=== PATIENT | male | born 1950 | race American Indian/Alaskan Native ===

== ENCOUNTER 2016-05-09 17:46 | Emergency (ER) | payer BC ==
[2016-05-09 18:48] LABS: Bilirubin,Urine NEG (Negative); Blood,Urine SM (Negative); Ketones,Urine NEG (Negative); Leukocyte Esterase,Urine NEG (Negative); Mucus,Urine FEW /HPF; Nitrite,Urine NEG (Negative); Protein,Urine <15 mg/dL mg/dL (Negative); Urobilinogen,Urine < 2.0 mg/dL (<2.0); WBC,Urine < 1.0 /HPF (0.0-6.0)
[2016-05-09 19:28] LABS: Hematocrit 45.1 % (35.5-45.6); Hemoglobin 14.8 gm/dl (11.8-15.2); Mean Corpuscular HGB Conc 33 % (32-34); Mean Corpuscular Hemoglobin 30 pg (28-32); Mean Corpuscular Volume 93 fl (84-94); Platelet Count 162 K/mm3 (140-440); Red Blood Count 4.87 M/mm3 (3.65-5.03); Red Cell Distribution Width 14.2 % (13.2-15.2); White Blood Count 11.1 K/mm3 (4.5-11.0)
[2016-05-09 19:36] LABS: Albumin 3.7 g/dL (3.9-5); Albumin/Globulin Ratio 0.9 %; Bilirubin,Total 0.4 mg/dL (0.1-1.2); Calcium 9.5 mg/dL (8.4-10.2); Chloride 98.8 mmol/L (98-107); Potassium 4.4 mmol/L (3.6-5.0)
[2016-05-09 21:55] LABS: Anisocytosis 1+; Basophils % (Manual) 0 % (0.0-1.8); Blastocytes % (Manual) 0 %; Diff Status Complete; Eosinophils % (Manual) 0 % (0.0-4.3); Platelet Estimate Consistent w Auto
[2016-05-10] MEDS ORDERED: ZOFRAN IV ONE (00:08)
[2016-05-10] MEDS ORDERED: SUBLIMAZE IV ONE (00:08)
--- NOTE | 2016-05-10 00:26 | Emergency Department Report ---
HPI - General Chief Complaint: Abdominal Pain Time Seen by Provider: 05/10/16 00:00 - HPI HPI: Room 4 The patient is a 66-year-old male presenting with a chief complaint of abdominal pain. The patient states since yesterday afternoon has had a constant pain in his left abdomen that has been waxing and waning. Patient denies nausea vomiting or diarrhea. The patient states last bowel movement occurred 2 days ago he normally has multiple bowel movements a day. Patient denies any history of fever. The patient currently gives his pain a score of 6/ 10. Patient denies cough or shortness of breath Location: Left abdomen Duration: Constant since yesterday afternoon Quality: Pain Severity: 6/10 Modifying factors: [see above] Context: [see above] Mode of transportation: There is a visitor present who states she can drive the patient home if he is administered narcotic pain medication. 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) Hx of Cancer: Yes (Prostate) - Surgical History Past Surgical History?: Yes Additional Surgical History: Prostate Removed - Family History Family history: no significant - Social History Smoking Status: Never Smoker Substance Use Type: Non Opiate Pain - Medications Home Medications: Home Medications Medication Instructions Recorded Confirmed Last Taken Type Amoxicillin [Amoxicillin TAB] 875 mg PO BID #20 tablet 05/10/16 Unknown Rx Docusate Sodium [Colace] 100 mg PO BID PRN #30 capsule 05/10/16 Unknown Rx HYDROcodone/APAP 5-325 [[place] 1 - 2 each PO Q6HR PRN #14 tablet 05/10/16 Unknown Rx 5/325] ED Review of Systems ROS: Stated complaint: LT SIDE PAIN WITH DEEP BREATHS Other details as noted in HPI Comment: All other systems reviewed and negative Constitutional: denies: chills, fever Eyes: denies: eye pain, eye discharge, vision change ENT: denies: ear pain, throat pain Respiratory: denies: cough, shortness of breath, wheezing Cardiovascular: denies: chest pain, palpitations Endocrine: no symptoms reported Gastrointestinal: abdominal pain. denies: nausea, vomiting Genitourinary: denies: urgency, dysuria Musculoskeletal: denies: back pain, joint swelling, arthralgia Skin: denies: rash, lesions Neurological: denies: headache, weakness, paresthesias Psychiatric: denies: anxiety, depression Hematological/Lymphatic: denies: easy bleeding, easy bruising Physical Exam - Physical Exam Vital Signs: Vital Signs 05/09/16 05/09/16 17:56 23:14 Temperature 98.2 F 98.0 F Pulse Rate 78 74 Respiratory 18 18 Rate Blood Pressure 153/89 Blood Pressure 128/47 [Left] O2 Sat by Pulse 96 100 Oximetry Physical Exam: GENERAL: The patient is well-developed well-nourished male lying on stretcher. To be in mild discomfort. [] HEENT: Normocephalic. Atraumatic. Extraocular motions are intact. Patient has moist mucous membranes. NECK: Supple. Trachea midline CHEST/LUNGS: Clear to auscultation. There is no respiratory distress noted. HEART/CARDIOVASCULAR: Regular. There is no tachycardia. There is no gallop rub or murmur. ABDOMEN: Abdomen is soft, with discomfort to palpation of left upper quadrant left lower quadrant. There is no rebound or guarding. Patient has normal bowel sounds. There is no abdominal distention. SKIN: There is no rash. There is no edema. There is no diaphoresis. NEURO: The patient is awake, alert, and oriented. The patient is cooperative. The patient has normal speech and gait. MUSCULOSKELETAL: There is no CVA tenderness. There is no evidence of acute injury. ED Course Vital Signs 05/09/16 05/09/16 17:56 23:14 Temperature 98.2 F 98.0 F Pulse Rate 78 74 Respiratory 18 18 Rate Blood Pressure 153/89 Blood Pressure 128/47 [Left] O2 Sat by Pulse 96 100 Oximetry ED Medical Decision Making - Lab Data Result diagrams: 05/09/16 18:52 05/09/16 18:52 Laboratory Tests 05/09/16 05/09/16 05/09/16 18:21 18:52 18:52 WBC 11.1 H RBC 4.87 Hgb 14.8 Hct 45.1 MCV 93 MCH 30 MCHC 33 RDW 14.2 Plt Count 162 Baso % (Auto) Pr Manager Add Manual Diff Complete Total Counted 100 Seg Neuts % (Manual) 60.0 Band Neutrophils % 0 Lymphocytes % (Manual) 28.0 Reactive Lymphs % (Man) 0 Monocytes % (Manual) 12.0 H Eosinophils % (Manual) 0 Basophils % (Manual) 0 Metamyelocytes % 0 Myelocytes % 0 Promyelocytes % 0 Blast Cells % 0 Nucleated RBC % Not Reportable Seg Neutrophils # Man 6.7 Band Neutrophils # 0.0 Lymphocytes # (Manual) 3.1 Abs React Lymphs (Man) 0.0 Monocytes # (Manual) 1.3 H Eosinophils # (Manual) 0.0 Basophils # (Manual) 0.0 Metamyelocytes # 0.0 Myelocytes # 0.0 Promyelocytes # 0.0 Blast Cells # 0.0 WBC Morphology Not Reportable Hypersegmented Neuts Not Reportable Hyposegmented Neuts Not Reportable Hypogranular Neuts Not Reportable Smudge Cells Not Reportable Toxic Granulation Not Reportable Toxic Vacuolation Not Reportable Dohle Bodies Not Reportable Pelger-Huet Anomaly Not Reportable Syd Rods Not Reportable Platelet Estimate Consistent w auto Clumped Platelets Not Reportable Plt Clumps, EDTA Not Reportable Large Platelets Not Reportable Giant Platelets Not Reportable Platelet Satelliting Not Reportable Plt Morphology Comment Not Reportable RBC Morphology Not Reportable Dimorphic RBCs Not Reportable Polychromasia Not Reportable Hypochromasia Not Reportable Poikilocytosis Not Reportable Anisocytosis 1+ Microcytosis Not Reportable Macrocytosis Not Reportable Spherocytes Not Reportable Pappenheimer Bodies Not Reportable Sickle Cells Not Reportable Target Cells Not Reportable Tear Drop Cells Not Reportable Ovalocytes Not Reportable Helmet Cells Not Reportable [place] Bodies Not Reportable [place] Rings Not Reportable Margaret Cells Not Reportable Bite Cells Not Reportable Crenated Cell Not Reportable Elliptocytes Not Reportable Acanthocytes (Spur) Not Reportable Rouleaux Not Reportable Hemoglobin C Crystals Not Reportable Schistocytes Not Reportable Malaria parasites Not Reportable Carl Bodies Not Reportable Hem Pathologist Commnt No Sodium 138 Potassium 4.4 Chloride 98.8 Carbon Dioxide 27 Anion Gap 17 BUN 21 H Creatinine 1.5 Estimated GFR 57 BUN/Creatinine Ratio 14.00 Glucose 92 Calcium 9.5 Total Bilirubin 0.4 AST 20 ALT 21 Alkaline Phosphatase 69 Total Protein 8.0 Albumin 3.7 L Albumin/Globulin Ratio 0.9 Lipase 25 Urine Color Yellow Urine Turbidity Clear Urine pH 5.0 Ur Specific [place] 1.018 Urine Protein <15 mg/dl Urine Glucose (UA) Neg Urine Ketones Neg Urine Blood Sm Urine Nitrite Neg Urine Bilirubin Neg Urine Urobilinogen < 2.0 Ur Leukocyte Esterase Neg Urine WBC (Auto) < 1.0 Urine RBC (Auto) 1.0 Urine Mucus Few - Radiology Data Radiology results: report reviewed (CT abdomen and pelvis, VQ scan), image reviewed (CT abdomen and pelvis, chest x-ray, VQ scan) interpreted by me: Chest x-ray-left lower lobe infiltrate/pleural effusion. No pneumothorax CT abdomen and pelvis (read by radiologist)-questionable left pulmonary embolism. CT angiogram of the chest or VQ scan suggestive for further evaluation. There are bibasilar infiltrates greater on the left. There is a small left pleural effusion. There is no ascites or free air, abscess or adenopathy. VQ scan (read by radiologist)-normal examination - Differential Diagnosis diverticulitis, constipation Critical care attestation.: If time is entered above; I have spent that time in minutes in the direct care of this critically ill patient, excluding procedure time. ED Disposition Clinical Impression: Acute abdominal pain, Pulmonary infiltrates, Pleural effusion, left Disposition: DISCHARGED TO HOME OR SELFCARE Is pt being admited?: No Does the pt Need Aspirin: No Condition: Stable Instructions: Pleural Effusion (ED) Additional Instructions: Return to the emergency department immediately should you develop worsening symptoms, fever, inability to tolerate food or liquid or any other concerns. Prescriptions: Amoxicillin [Amoxicillin TAB] 875 mg PO BID #20 tablet Docusate Sodium [Colace] 100 mg PO BID PRN #30 capsule PRN Reason: Constipation HYDROcodone/APAP 5-325 [[place] 5/325] 1 - 2 each PO Q6HR PRN #14 tablet PRN Reason: Pain Referrals: BRANDY GAYLE JR, MD [Primary Care Provider] - 3-5 Days JESUS COULTER MD [Staff Physician] - [facility] (Dr. Coulter is a triage nurse. Please follow up with him for further evaluation of your pleural effusion) Time of Disposition: 05:45
[2016-05-10] MEDS ORDERED: NACL ONE (00:47)
--- NOTE | 2016-05-10 03:00 | Cat Scan Report ---
FINAL REPORT PROCEDURE: CT ABDOMEN PELVIS W CON TECHNIQUE: Computerized axial tomography of the abdomen and pelvis was performed after the IV injection of iodinated nonionic contrast. HISTORY: left-sided abdominal pain, constipation COMPARISON: No prior studies are available for comparison. FINDINGS: Visualized lower thorax: Questionable left pulmonary embolism. CT angiogram of the chest or V/Q scan suggested for further evaluation. There are bibasilar infiltrates greater on the left. There is a small left pleural effusion.. Liver: The liver is enlarged. There are hypodense cystic areas in the right lobe. There is no solid appearing mass.. Spleen: Normal size and attenuation. Gallbladder and biliary system: Normal. Pancreas: Normal. Adrenals: Normal. Kidneys: Normal. GI tract: There is no bowel obstruction. There is moderate stool in the colon. There is no colitis or enteritis. The appendix is visualized and is normal.. Lymph nodes and mesentery: Normal. Vasculature: Normal. Bladder: Normal. Reproductive organs: There has been a prostatectomy. Peritoneum: There is no ascites or free air, abscess or adenopathy... Musculoskeletal structures: Moderate degenerative disc change at L4-5.. Other: There is a small umbilical hernia defect containing fat only.. IMPRESSION: Questionable left pulmonary embolism. CT angiogram of the chest or V/Q scan suggested for further evaluation. There are bibasilar infiltrates greater on the left. There is a small left pleural effusion.. The liver is enlarged. There are hypodense cystic areas in the right lobe. There is no solid appearing mass.. There is no bowel obstruction. There is moderate stool in the colon. There is no colitis or enteritis. The appendix is visualized and is normal.. There has been a prostatectomy. There is no ascites or free air, abscess or adenopathy... There is a small umbilical hernia defect containing fat only..
[2016-05-10 05:36] VITALS: BP 114/68
--- NOTE | 2016-05-10 05:36 | Nuclear Medicine Report ---
FINAL REPORT PROCEDURE: NM LUNG SCAN PERF/VENT TECHNIQUE: 5 mCi Tc-99m MAA was injected IV for pulmonary perfusion imaging in multiple projections. 15 MCi [id number] was inhaled for pulmonary ventilation imaging in multiple projections. Injection site: RIGHT antecubital fossa. CPT 36367 REGULATORY GUIDELINES: The patient was released based upon guidelines established in [place] State Regulations for Protection Against Radiation, Chapter 2140-53-67-35, Release of Individuals Containing Radioactive Drugs or Implants. HISTORY: CT suspicious for PE. Left side pain COMPARISON: Chest x-ray 04/1916 FINDINGS: Perfusion: No defects . Ventilation: No defects . IMPRESSION: Normal Examination
--- NOTE | 2016-05-11 08:47 | ED Follow Up Radiology ---
Radiology Discrepancy Review - Radiology Findings Radiology findings: Dr. Maurice informs me that the VQ scan and the CT are both positive for pulmonary embolism. The patient will be notified to return to the emergency department as soon as possible. - Decision to Call Back Pt call back decision: Call pt to return to ED MATTHEW
--- NOTE | 2016-05-11 09:21 | XRay Report ---
AP CHEST: HISTORY: The chest pain, left flank pain There is poor inspiration. Patchy infiltrate at the left lung base and small left pleural effusion are suspected. There is minor segmental atelectasis at the right lung base. No pneumothorax. Heart and mediastinal structures are within normal limits. IMPRESSION: Left lower lobe opacity and small left pleural effusion.
== END 2016-05-10 06:08 | disposition home or self-care (01) ==
LOC: ED 17:46
DX: R10.9 Unspecified abdominal pain (principal); R91.8 Other nonspecific abnormal finding of lung field; J90 Pleural effusion, not elsewhere classified
CPT/HCPCS: 36415; 71010; 74177; 78582; 80053; 81001; 83690; 85007; 85025; 96374; 99284; A9540; A9558; J2405; J3010; Q9967

== ENCOUNTER 2016-05-11 10:31 | Inpatient (IN) | payer BC, MEDICARE ==
[2016-05-11] MEDS ORDERED: HEPARIN 10,000 UNITS/10 ML IV ONE (12:29)
--- NOTE | 2016-05-11 13:01 | Emergency Department Report ---
ED General Adult HPI - General Chief complaint: Dyspnea/Respdistress Stated complaint: CALL BACK Time Seen by Provider: 05/11/16 12:08 Source: patient Mode of arrival: Ambulatory Limitations: No Limitations - History of Present Illness Initial comments: Received a call from the radiologist this morning concerning a radiological discrepancy. Dr. Maurice told me that in his opinion the patient has pulmonary embolism and that both the CT and the VQ scan are positive for pulmonary embolism. The patient was seen and worked up by an emergency physician who found her to have pulmonary infiltrates and prescribed ampicillin. I called the patient back for reevaluation immediately. The patient tells me that the onset of his symptoms were really quite abrupt at about 3:00 on Wednesday afternoon. He has had pleuritic pain which appears to be superficial headache anterior on the left. He is somewhat vague historian and it is difficult to ascertain whether he is stating that his pain is in the abdomen or his chest. However when he points he indicates the left costal area. He does not have any pain on the right. He does not specifically have dyspnea either. He states that he's been coughing but really not that much. He has not had any hemoptysis. He denies fever or chills. He states he's not had any recent traveling. He has no history of VTE personally or in his family. In fact he tells me that he's never had blood clots before. However he has a personal history of a blood clot in the greater saphenous vein in 2013. Apparently he is very poor historian. He does state he has varicose veins of his left leg and that it has been a bit swollen lately. He does not complain of leg that is calf or thigh pain per se however. In addition the patient has had a prostatectomy. I presume this is for prostate cancer. -: Sudden Location: chest, left Radiation: non-radiation Severity scale (0 -10): 6 Quality: dull Consistency: intermittent Improves with: none Worsens with: other (pleuritic) Associated Symptoms: cough - Related Data Previous Rx's Medication Instructions Recorded Last Taken Type Amoxicillin [Amoxicillin TAB] 875 mg PO BID #20 tablet 05/10/16 Unknown Rx Docusate Sodium [Colace] 100 mg PO BID PRN #30 capsule 05/10/16 Unknown Rx HYDROcodone/APAP 5-325 [[place] 1 - 2 each PO Q6HR PRN #14 tablet 05/10/16 Unknown Rx 5/325] Allergies Allergy/AdvReac Type Severity Reaction Status Date / Time No Known Allergies Allergy Unverified 08/11/13 12:11 ED Review of Systems ROS: Stated complaint: CALL BACK Other details as noted in HPI Constitutional: denies: chills, fever Eyes: denies: eye pain, eye discharge, vision change ENT: denies: ear pain, throat pain Respiratory: cough. denies: shortness of breath, wheezing Cardiovascular: chest pain. 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) Hx of Cancer: Yes Hx Asthma: No Hx COPD: No Additional medical history: Prostate - Surgical History Past Surgical History?: Yes Additional Surgical History: Prostate Removed - Social History Smoking Status: Never Smoker Substance Use Type: None - Medications Home Medications: Home Medications Medication Instructions Recorded Confirmed Last Taken Type Amoxicillin [Amoxicillin TAB] 875 mg PO BID #20 tablet 05/10/16 Unknown Rx Docusate Sodium [Colace] 100 mg PO BID PRN #30 capsule 05/10/16 Unknown Rx HYDROcodone/APAP 5-325 [[place] 1 - 2 each PO Q6HR PRN #14 tablet 05/10/16 Unknown Rx 5/325] ED Physical Exam - General Limitations: No Limitations General appearance: alert, in no apparent distress - Head Head exam: Present: atraumatic, normocephalic - Eye Eye exam: Present: normal appearance. Absent: scleral icterus - ENT ENT exam: Present: mucous membranes moist - Neck Neck exam: Present: normal inspection - Respiratory Respiratory exam: Present: normal lung sounds bilaterally. Absent: respiratory distress - Cardiovascular Cardiovascular Exam: Present: regular rate, normal rhythm. Absent: systolic murmur, diastolic murmur, rubs, gallop - GI/Abdominal GI/Abdominal exam: Present: soft, normal bowel sounds. Absent: distended, tenderness, guarding, rebound, rigid - Rectal Rectal exam: Present: deferred - Extremities Exam Extremities exam: Present: other (the left calf has varicose veins. There is a palpable cord which is superficial. It is not frankly erythematous.) - Back Exam Back exam: Present: normal inspection - Neurological Exam Neurological exam: Present: alert, oriented X3, CN II-XII intact. Absent: motor sensory deficit - Psychiatric Psychiatric exam: Present: normal affect, normal mood - Skin Skin exam: Present: warm, dry, intact, normal color. Absent: rash ED Course Vital Signs 05/11/16 05/11/16 05/11/16 10:40 11:30 11:34 Temperature 97.7 F Pulse Rate 70 66 66 Respiratory 18 20 Rate Blood Pressure 140/81 Blood Pressure 143/81 [Left] O2 Sat by Pulse 98 96 Oximetry - Reevaluation(s) Reevaluation #1: Spoke with Dr. Bruno. He requested I begin a standard heparin drip. I have done so. Of also ordered a Doppler. Going to give the patient a dose of ceftriaxone because there are bilateral pulmonary infiltrates. I'm not sure if these are actually infectious in nature. 05/11/16 13:21 ED Medical Decision Making - Radiology Data Radiology results: report reviewed Critical care attestation.: If time is entered above; I have spent that time in minutes in the direct care of this critically ill patient, excluding procedure time. ED Disposition Clinical Impression: Pulmonary infiltrates, Pleural effusion, left, Superficial thrombophlebitis of left leg Pulmonary embolism Qualifiers: Pulmonary embolism type: other Chronicity: acute Acute cor pulmonale presence: without acute cor pulmonale Qualified Code(s): I26.99 - Other pulmonary embolism without acute cor pulmonale Disposition: OP ADMITTED IP TO THIS HOSP Is pt being admited?: Yes Does the pt Need Aspirin: Yes Condition: Stable Referrals: PRIMARY CARE, [Primary Care Provider] - 3-5 Days Time of Disposition: 13:23
[2016-05-11 13:20] LABS: Hematocrit 44.6 % (35.5-45.6); Hemoglobin 14.4 gm/dl (11.8-15.2)
[2016-05-11] MEDS ORDERED: BABY ASPIRIN PO ONE (13:24)
[2016-05-11] MEDS ORDERED: ROCEPHIN/NS 1 GM/50 ML 1 GM/50 ML BAG IV ONE (13:25)
[2016-05-11 13:29] LABS: INR 1.27 (0.87-1.13)
[2016-05-11 13:30] LABS: Partial Thromboplastin Time 33.1 Sec. (24.2-36.6)
--- NOTE | 2016-05-11 13:54 | History and Physical Report ---
History of Present Illness Date of examination: 05/11/16 Date of admission: 05/11/16 Chief complaint: left lower chest pain History of present illness: 66-year-old male who presents today with department with complaints of left costal chest pain. Patient states that his pain developed abruptly approximately 3 PM on Wednesday. Patient was evaluated in our emergency department and underwent both CT and V/Q scan which were found to be positive for pulmonary embolism. ER physician as the patient come back to the hospital for further evaluation. Patient denies any hemoptysis. Patient denies any dyspnea. She denies any recent traveling or prolonged bed rest. Patient does report a history of prostate cancer diagnosed approximately 6 years ago. Patient reports some mild swelling of the left lower extremity but complains of no pain. Past History Past Medical History: cancer (prostate) Past Surgical History: Other (prostatectomy) Social history: no significant social history Family history: no significant family history Medications and Allergies Allergies Allergy/AdvReac Type Severity Reaction Status Date / Time No Known Allergies Allergy Unverified 08/11/13 12:11 Home Medications Medication Instructions Recorded Confirmed Last Taken Type Amoxicillin [Amoxicillin TAB] 875 mg PO BID #20 tablet 05/10/16 Unknown Rx Docusate Sodium [Colace] 100 mg PO BID PRN #30 capsule 05/10/16 Unknown Rx HYDROcodone/APAP 5-325 [[place] 1 - 2 each PO Q6HR PRN #14 tablet 05/10/16 Unknown Rx 5/325] Active Meds: Active Medications Heparin Sodium/Sodium Chloride (Heparin/ 0.45% Nacl-25,000 Unit/500 Ml) 25,000 unit in 500 mls @ 30 mls/hr IV TITR GAURI; 1,500 UNITS/HR PRN Reason: Protocol Ceftriaxone Sodium (Rocephin/Ns 1 Gm/50 Ml) 1 gm in 50 mls @ 100 mls/hr IV ONCE.ED ONE Stop: 05/11/16 13:54 Review of Systems All systems: negative Exam - Constitutional Vitals: Temp Pulse Resp BP Pulse Ox 97.7 F 66 20 143/81 96 05/11/16 10:40 05/11/16 11:34 05/11/16 11:30 05/11/16 11:30 05/11/16 11:30 General appearance: Present: no acute distress, well-nourished - EENT Eyes: Present: PERRL ENT: hearing intact, clear oral mucosa - Neck Neck: Present: supple, normal ROM - Respiratory Respiratory effort: normal Respiratory: bilateral: CTA - Cardiovascular Heart Sounds: Present: S1 & S2. Absent: rub, click - Extremities Extremities: pulses symmetrical, No edema Peripheral Pulses: within normal limits - Abdominal General gastrointestinal: Present: soft, non-tender, non-distended, normal bowel sounds Male genitourinary: Present: normal - Integumentary Integumentary: Present: clear, warm, dry - Musculoskeletal Musculoskeletal: gait normal, strength equal bilaterally - Psychiatric Psychiatric: appropriate mood/affect, intact judgment & insight - Neurologic Neurologic: CNII-XII intact, moves all extremities Results - Labs CBC & Chem 7: 05/11/16 12:47 Labs: Laboratory Last Values Hgb 14.4 gm/dl (11.8-15.2) 05/11/16 12:47 Hct 44.6 % (35.5-45.6) 05/11/16 12:47 Plt Count 166 K/mm3 (140-440) 05/11/16 12:47 PT 15.8 Sec. (12.2-14.9) H 05/11/16 12:47 INR 1.27 (0.87-1.13) H 05/11/16 12:47 APTT 33.1 Sec. (24.2-36.6) 05/11/16 12:47 Assessment and Plan Assessment and plan: 1. Acute pulmonary embolism. Patient will be treated with IV heparin for now. We will consider transitioning to by mouth medications at discharge. We will check will case management regarding discharge medications/planning. 2. Left lower lobe pneumonia. Patient will be placed on a pneumonia pathway. Patient will continue an IV on her buttocks. 3. History of prostate cancer.
[2016-05-11] MEDS ORDERED: PERCOCET 5/325 PO PRN (13:58)
--- NOTE | 2016-05-11 14:02 | Admit Criteria Form ---
Admission Criteria Documentation: PULMONARY EMBOLISM Clinical Indications for Admission to Inpatient Care (Place 'X' for any and all applicable criteria): Admission is indicated by ANY ONE of the following 1,2,3,4,5 [ ]I. Onset of hypoxia [ ]II. Hemodynamic instability 5 [ ]III. Massive pulmonary embolism (eg, acute embolism causing sustained hypotension, pulselessness, or bradycardia)5 [ ]IV. Need for IV narcotics (eg, to treat dyspnea) [ ]V. Current use of home oxygen therapy [ ]. Active bleeding [ ]VII. Recent surgery [ ]VIII. Active peptic ulcer disease [ ]IX. Documented extensive thrombosis (eg, clot in vena cava or above iliofemoral bifurcation) [ ]X. Embolism while on anticoagulation [ ]XI. 6 [X ]XII. Appropriate monitoring and therapy cannot be provided in home or outpatient setting. [ ]XIII. Systemic or catheter-directed thrombolysis 5,7 [ ]XIV. Catheter embolectomy and fragmentation 6 [ ]XV. Vena cava filter placement5 [ ]XVI. Severely diminished cardiopulmonary reserve (eg, cor pulmonale, pulmonary hypertension) [ ]XVII. Severe renal failure (eg, GFR less than 30 mL/min/1.73m2 (0.5 mL/sec/ 1.73m2)) [ ]XVIII.Right ventricular dysfunction (eg, by echocardiogram) 6,11 [ ]XIX. Positive cardiac biomarker (eg, troponin T or I > 0.1 ng/mL (mcg/L), highly sensitive troponin I assay greater than 0.014 ng/mL (mcg/L), BNP or NT proBNP > assay threshold)5,8,9 [ ]XX. Known clotting abn or def (eg, liver disease, antithrombin III, protein C, or protein S abnormality) [ ]XXI. History of heparin-induced thrombocytopenia [ ]XXII. Inpatient admission required rather than observation care (Also use Pulmonary Embolism: Observation Care guideline as appropriate) because of ANY ONE of the following: [ ] a) Significant autoimmune (thrombocytopenia) or coagulopathic reaction occurs in response to anticoagulation [ ] b) Respiratory symptoms (eg, tachypnea, dyspnea) that are severe or persistent [ ] c) Other condition, treatment, or monitoring requiring inpatient admission Extended stay beyond goal length of stay may be needed for 3,28 [ ]a) Hemorrhage or recent surgery [ ]b) Recurrent thromboembolism [ ]c) Persistent hypoxemia [ ]d) Heparin-induced thrombocytopenia The original [facility] [employer] content created by [facility] [employer] has been revised. The portions of the content which have been revised are identified through the use of italic text or in bold, and [facility] has neither reviewed nor approved the modified material. All other unmodified content is copyright [facility] [employer]. Please see references footnoted in the original [facility] [employer] edition 2016 Admission Criteria Met: Yes
[2016-05-11] MEDS ORDERED: ZOFRAN IV PRN (15:00)
[2016-05-11] MEDS ORDERED: MILK OF MAGNESIA PO PRN (15:00)
[2016-05-11] MEDS ORDERED: TYLENOL PO PRN (15:00)
[2016-05-11] MEDS ORDERED: DULCOLAX PR PRN (15:00)
[2016-05-11] MEDS ORDERED: HEPARIN/ 0.45% NACL-25,000 UNIT/500 ML 25,000 UNIT/500 ML BAG ONE (15:05)
[2016-05-11] MEDS ORDERED: NACL 0.9% 1000 ML 1,000 ML ONE (15:05)
[2016-05-11] MEDS ORDERED: HEPARIN 10,000 UNITS/10 ML ONE (15:05)
[2016-05-11] MEDS: HEPARIN/ 0.45% NACL-25,000 UNIT/500 ML 25,000 UNIT/500 ML BAG IV SCH (15:22)
[2016-05-11] MEDS: NACL 0.9% 1000 ML 1,000 ML IV SCH (15:23)
[2016-05-11 17:13] LABS: Hematocrit 42.9 % (35.5-45.6); Hemoglobin 13.6 gm/dl (11.8-15.2)
[2016-05-11 17:42] LABS: INR 1.32 (0.87-1.13)
[2016-05-11 17:56] LABS: Partial Thromboplastin Time 155.2 Sec. (24.2-36.6)
[2016-05-12] MEDS: NACL 0.9% 1000 ML 1,000 ML IV SCH ×2 (05:24→23:40)
[2016-05-12 07:12] LABS: Basophils % (Auto) 0.9 % (0.0-1.8); Eosinophils % (Auto) 2.9 % (0.0-4.3); Hematocrit 39.6 % (35.5-45.6); Hemoglobin 12.9 gm/dl (11.8-15.2); Mean Corpuscular HGB Conc 33 % (32-34); Mean Corpuscular Hemoglobin 30 pg (28-32); Mean Corpuscular Volume 91 fl (84-94); Platelet Count 158 K/mm3 (140-440); Red Blood Count 4.34 M/mm3 (3.65-5.03); Red Cell Distribution Width 14.2 % (13.2-15.2); White Blood Count 7.2 K/mm3 (4.5-11.0)
[2016-05-12 07:27] LABS: BUN/Creatinine Ratio 11.33; Calcium 8.7 mg/dL (8.4-10.2); Chloride 102.8 mmol/L (98-107); Potassium 4.2 mmol/L (3.6-5.0)
--- NOTE | 2016-05-12 07:29 | Vascular Lab Report ---
LOWER EXTREMITY VENOUS DUPLEX: REASON FOR EXAM: Pulmonary embolism. COMMENTS ON THE RIGHT: All veins visualized are freely compressible without evidence of internal echogenicity. Flow is spontaneous and phasic throughout. COMMENTS ON THE LEFT: All veins visualized are freely compressible without evidence of internal echogenicity. Flow is spontaneous and phasic throughout. Extensive superficial thrombosis noted in the greater saphenous vein from the saphenofemoral junction peel-away down to the ankle IMPRESSION: No evidence of acute or chronic deep venous thrombosis in either lower extremity. Extensive superficial thrombosis in the left greater saphenous vein.
[2016-05-12] MEDS: HEPARIN/ 0.45% NACL-25,000 UNIT/500 ML 25,000 UNIT/500 ML BAG IV SCH ×2 (09:50→23:41)
[2016-05-12] MEDS ORDERED: LEVAQUIN 750MG/150ML 750 MG/150 ML BAG IV SCH (10:00)
--- NOTE | 2016-05-12 10:35 | Progress Note ---
Assessment and Plan Assessment and plan: 1. Acute pulmonary embolism. Patient will be treated with IV heparin for now. Check echocardiogram today. Patient will likely be discharged on Eliquis 10 mg twice daily for the first 7 days then 5 mg twice daily. We will check will case management regarding discharge medications/planning. Bilateral lower extremity ultrasound negative 2. Left lower lobe pneumonia. Patient will be placed on a pneumonia pathway. Patient will continue on IV antibiotics 3. History of prostate cancer. History Interval history: No new issues overnight. Patient denies chest pain or shortness of breath. Hospitalist Physical - Constitutional Vitals: Temp Pulse Resp BP Pulse Ox 98.8 F 57 L 20 127/60 94 05/11/16 21:12 05/11/16 21:12 05/11/16 21:12 05/11/16 21:12 05/11/16 21:12 General appearance: Present: no acute distress, well-nourished - EENT Eyes: Present: PERRL, EOM intact ENT: hearing intact, clear oral mucosa, dentition normal - Neck Neck: Present: supple, normal ROM - Respiratory Respiratory effort: normal Respiratory: bilateral: CTA - Cardiovascular Rhythm: regular Heart Sounds: Present: S1 & S2. Absent: gallop, rub - Extremities Extremities: no ischemia, No edema, Full ROM - Abdominal General gastrointestinal: soft, non-tender, non-distended, normal bowel sounds - Integumentary Integumentary: Present: clear, warm, dry - Neurologic Neurologic: CNII-XII intact, moves all extremities Results - Labs CBC & Chem 7: 05/12/16 06:35 05/12/16 06:35 Labs: Laboratory Last Values WBC 7.2 K/mm3 (4.5-11.0) 05/12/16 06:35 RBC 4.34 M/mm3 (3.65-5.03) 05/12/16 06:35 Hgb 12.9 gm/dl (11.8-15.2) 05/12/16 06:35 Hct 39.6 % (35.5-45.6) 05/12/16 06:35 MCV 91 fl (84-94) 05/12/16 06:35 MCH 30 pg (28-32) 05/12/16 06:35 MCHC 33 % (32-34) 05/12/16 06:35 RDW 14.2 % (13.2-15.2) 05/12/16 06:35 Plt Count 158 K/mm3 (140-440) 05/12/16 06:35 Lymph % (Auto) 28.5 % (13.4-35.0) 05/12/16 06:35 [place] % (Auto) 10.4 % (0.0-7.3) H 05/12/16 06:35 Eos % (Auto) 2.9 % (0.0-4.3) 05/12/16 06:35 Baso % (Auto) 0.9 % (0.0-1.8) 05/12/16 06:35 Lymph # 2.0 K/mm3 (1.2-5.4) 05/12/16 06:35 [place] # 0.7 K/mm3 (0.0-0.8) 05/12/16 06:35 Eos # 0.2 K/mm3 (0.0-0.4) 05/12/16 06:35 Baso # 0.1 K/mm3 (0.0-0.1) 05/12/16 06:35 Seg Neutrophils % 57.3 % (40.0-70.0) 05/12/16 06:35 Seg Neutrophils # 4.1 K/mm3 (1.8-7.7) 05/12/16 06:35 PT 16.3 Sec. (12.2-14.9) H 05/11/16 16:38 INR 1.32 (0.87-1.13) H 05/11/16 16:38 APTT 155.2 Sec. (24.2-36.6) H* 05/11/16 16:38 Heparin Anti-Xa Level 0.37 U.I./ml (0.3-0.7) 05/11/16 21:29 Sodium 139 mmol/L (137-145) 05/12/16 06:35 Potassium 4.2 mmol/L (3.6-5.0) 05/12/16 06:35 Chloride 102.8 mmol/L (98-107) 05/12/16 06:35 Carbon Dioxide 26 mmol/L (22-30) 05/12/16 06:35 Anion Gap 14 mmol/L 05/12/16 06:35 BUN 17 mg/dL (9-20) 05/12/16 06:35 Creatinine 1.5 mg/dL (0.8-1.5) 05/12/16 06:35 Estimated GFR 57 ml/min 05/12/16 06:35 BUN/Creatinine Ratio 11.33 % 05/12/16 06:35 Glucose 89 mg/dL (75-100) 05/12/16 06:35 Calcium 8.7 mg/dL (8.4-10.2) 05/12/16 06:35
[2016-05-13 06:04] LABS: Hematocrit 39.3 % (35.5-45.6); Hemoglobin 12.9 gm/dl (11.8-15.2)
--- NOTE | 2016-05-13 08:19 | Discharge Summary ---
Providers - Providers Date of Admission: 05/11/16 13:58 Date of discharge: 05/13/16 Attending physician: RUSTY DE JESUS Primary care physician: ORDER DESK CALLER Hospitalization Reason for admission: left costal pain Condition: Stable Hospital course: 66-year-old male who presented on 05/11/16 to ER department with complaints of left costal chest pain. Patient states that his pain developed abruptly approximately 3 PM on Wednesday. Patient was evaluated in our emergency department previously and underwent both CT and V/Q scan which were found to be positive for pulmonary embolism. ER physician asked the patient come back to the hospital for further evaluation. Patient denied any hemoptysis. Patient denies any dyspnea. He denies any recent traveling or prolonged bed rest. Patient does report a history of prostate cancer diagnosed approximately 6 years ago. Patient reports some mild swelling of the left lower extremity but complains of no pain. Patient was admitted and placed on heparin drip per protocol. Patient underwent bilateral lower extremity ultrasound which was found to be negative. Echocardiogram revealed no cardiac compromise. EF 55-60% . Normal left ventricular diastolic filling and right ventricle mildly dilated with mild to moderate dilation of the right atrium. Right ventricular systolic pressure was Inflated and 43 mmHg. There was evidence of mild pulmonary hypertension. Patient will be discharged home with Eliquis. There was some question of bilateral pulmonary infiltrates related to pneumonia. Patient was placed on the pneumonia pathway and treat with IV antibiotics. Patient will also be discharged with antibiotics. He should follow-up as an outpatient with hematology and pulmonary. Dedicated discharge time 35 minutes. Disposition: DISCHARGED TO HOME OR SELFCARE - Discharge Diagnoses (1) Pleural effusion, left Status: Acute (2) Pulmonary embolism Status: Acute Qualifiers: Pulmonary embolism type: other Chronicity: acute Acute cor pulmonale presence: without acute cor pulmonale Qualified Code(s): I26.99 - Other pulmonary embolism without acute cor pulmonale (3) Pulmonary infiltrates Status: Acute Core Measure Documentation - Palliative Care Palliative Care/ Comfort Measures: Not Applicable - Core Measures Any of the following diagnoses?: DVT/PE, none - VTE Discharge Requirements Deep Vein Thrombosis/Pulmonary Embolism Present on Admission: Yes Has pt received <5 days of overlap therapy or INR<2.0: Yes (on eliquis) Anticoagulant overlap therapy prescribed at discharge: No Contraindication No Overlap Therapy order at DC: Not Indicated (on eliquis) Exam - Constitutional Vitals: Temp Pulse Resp BP Pulse Ox 98.5 F 50 L 18 143/65 95 05/13/16 04:34 05/13/16 04:34 05/13/16 04:34 05/13/16 04:34 05/12/16 21:53 General appearance: Present: no acute distress, well-nourished - EENT Eyes: Present: PERRL ENT: hearing intact, clear oral mucosa - Neck Neck: Present: supple, normal ROM - Respiratory Respiratory effort: normal Respiratory: bilateral: CTA - Cardiovascular Heart Sounds: Present: S1 & S2. Absent: rub, click - Extremities Extremities: pulses symmetrical, No edema Peripheral Pulses: within normal limits - Abdominal General gastrointestinal: Present: soft, non-tender, non-distended, normal bowel sounds Male genitourinary: Present: normal - Integumentary Integumentary: Present: clear, warm, dry - Musculoskeletal Musculoskeletal: gait normal, strength equal bilaterally - Psychiatric Psychiatric: appropriate mood/affect, intact judgment & insight - Neurologic Neurologic: CNII-XII intact, moves all extremities Plan Activity: no restrictions Weight Bearing Status: Full Weight Bearing (on Wednesday) Diet: regular Follow up with: PRIMARY CARE, [Primary Care Provider] - 3-5 Days NAHUN ROBLEDO MD [Staff Physician] - 7 Days PAULINE HAQ DO [Staff Physician] - 7 Days Prescriptions: Apixaban [Eliquis] 10 mg PO BID 7 Days Apixaban [Eliquis] 5 mg PO BID 180 Days Levofloxacin [Levaquin TAB] 500 mg PO QDAY #7 tablet
[2016-05-13 11:22] VITALS: BP 115/58
[2016-05-13] MEDS ORDERED: LEVAQUIN PO SCH (12:00)
== END 2016-05-13 16:37 | disposition home or self-care (01) | DRG 175 ==
LOC: ED 10:31 → 4A 13:58 → 3A 14:40
PROVIDERS: ADMIT Hospitalist; ATTEND Hospitalist
DX: I26.99 Other pulmonary embolism without acute cor pulmonale (principal); J18.9 Pneumonia, unspecified organism; J90 Pleural effusion, not elsewhere classified; Z86.718 Personal history of other venous thrombosis and embolism; Z85.46 Personal history of malignant neoplasm of prostate
CPT/HCPCS: 36415; 80048; 85014; 85018; 85025; 85049; 85520; 85610; 85730; 93306; 93880; 93970; 96365; J0696; J1644; J1956; J7030